=== PATIENT | male | born 1995 | race Hispanic/Latino ===

== ENCOUNTER 2019-05-19 02:36 | Emergency (ER) | payer SELFPAY ==
--- NOTE | 2019-05-19 03:14 | XRay Report ---
CHEST 2 VIEWS INDICATION / CLINICAL INFORMATION: CP. COMPARISON: None available. FINDINGS: SUPPORT DEVICES: None. HEART / MEDIASTINUM: No significant abnormality. LUNGS / PLEURA: No significant pulmonary or pleural abnormality. No pneumothorax. ADDITIONAL FINDINGS: No significant additional findings. IMPRESSION: 1. No acute findings. Signer Name: Chencho Arreola MD Signed: 05/19/2019 3:10 AM Workstation Name: [id number]
--- NOTE | 2019-05-19 03:36 | Emergency Department Report ---
ED General Adult HPI - General Chief complaint: Chest Pain Stated complaint: ANXIETY Time Seen by Provider: 05/19/19 03:20 Source: patient, EMS Mode of arrival: Ambulatory Limitations: No Limitations - History of Present Illness Initial comments: Patient is a 23-year-old white male with a history of anxiety and panic attacks who presents to the ED with complaint of acute onset persistent shortness of breath and cough as well as chest pain which started 2 hours ago, and her chest since resolved. Patient states that he started coughing and panic on the chest also started being tight. Patient denies dizziness, fever, chills, diaphoresis, sore throat, abdominal pain, nausea, vomiting, headache and change in vision. Patient states that he does not have any medicine for anxiety or panic attack at home. MD Complaint: Chest pain, anxiety and panic attack -: Sudden, hour(s) (2) Location: chest Radiation: non-radiation Severity scale (0 -10): 0 Quality: dull Consistency: now resolved Improves with: none Worsens with: none Associated Symptoms: denies other symptoms, chest pain, cough, shortness of breath. denies: confusion, diaphoresis, fever/chills, headaches, loss of appetite, malaise, nausea/vomiting, seizure, weakness Treatments Prior to Arrival: none - Related Data Previous Rx's Medication Instructions Recorded Last Taken Type hydrOXYzine PAMOATE [Vistaril] 25 mg PO Q6HR PRN #30 capsule 05/19/19 Unknown Rx Allergies Allergy/AdvReac Type Severity Reaction Status Date / Time Penicillins Allergy Rash Verified 05/19/19 02:41 ED Review of Systems ROS: Stated complaint: ANXIETY Other details as noted in HPI Constitutional: denies: chills, fever Eyes: denies: eye pain, eye discharge, vision change ENT: denies: ear pain, throat pain Respiratory: shortness of breath. denies: cough, wheezing Cardiovascular: chest pain. denies: palpitations Endocrine: no symptoms reported Gastrointestinal: denies: abdominal pain, nausea, diarrhea Genitourinary: denies: urgency, dysuria Musculoskeletal: denies: back pain, joint swelling, arthralgia Skin: denies: rash, lesions Neurological: denies: headache, weakness, paresthesias Psychiatric: anxiety. denies: depression Hematological/Lymphatic: denies: easy bleeding, easy bruising ED Past Medical Hx - Past Medical History Previous Medical History?: No Hx Psychiatric Treatment: Yes (Anxiety and panic attacks) - Surgical History Past Surgical History?: No - Social History Smoking Status: Never Smoker Substance Use Type: None - Medications Home Medications: Home Medications Medication Instructions Recorded Confirmed Last Taken Type hydrOXYzine PAMOATE [Vistaril] 25 mg PO Q6HR PRN #30 capsule 05/19/19 Unknown Rx ED Physical Exam - General Limitations: No Limitations General appearance: alert, in no apparent distress - Head Head exam: Present: atraumatic, normocephalic, normal inspection - Eye Eye exam: Present: normal appearance, PERRL, EOMI Pupils: Present: normal accommodation - ENT ENT exam: Present: normal exam, normal orophraynx, mucous membranes moist, TM's normal bilaterally, normal external ear exam - Neck Neck exam: Present: normal inspection, full ROM. Absent: tenderness, meningismus, lymphadenopathy, thyromegaly - Respiratory Respiratory exam: Present: normal lung sounds bilaterally. Absent: respiratory distress, wheezes, chest wall tenderness, accessory muscle use, decreased breath sounds, prolonged expiratory - Cardiovascular Cardiovascular Exam: Present: regular rate, normal rhythm, normal heart sounds. Absent: systolic murmur, diastolic murmur, rubs, gallop - GI/Abdominal GI/Abdominal exam: Present: soft, normal bowel sounds. Absent: tenderness, guarding, rebound, hyperactive bowel sounds, hypoactive bowel sounds, mass, bruit, pulsatile mass - Rectal Rectal exam: Present: deferred - Extremities Exam Extremities exam: Present: normal inspection, full ROM, normal capillary refill - Back Exam Back exam: Present: normal inspection, full ROM. Absent: CVA tenderness (L), muscle spasm, paraspinal tenderness, vertebral tenderness - Neurological Exam Neurological exam: Present: alert, oriented X3, CN II-XII intact, normal gait, reflexes normal - Psychiatric Psychiatric exam: Present: normal affect, normal mood, anxious - Skin Skin exam: Present: warm, dry, intact, normal color. Absent: rash ED Course - Reevaluation(s) Reevaluation #1: 05/19/19 03:40 This is a 23-year-old male with a history of chronic panic attacks and anxiety who presented to the ED with chest tightness and pain, and which has since resolved on arrival in the ED. Patient does not take any medications for anxiety or panic attacks. Patient is alert and oriented 3 and is not in distress with normal vital signs. The EKG shows a sinus bradycardia with a ventricular rate of 57 bpm, and no ST or T-wave abnormalities or pathological Q waves. Chest x-ray shows no acute cardiopulmonary abnormalities. Patient's symptoms are characteristic of panic attacks and anxiety based on history and physical exam findings. Patient does not have any cardiac risk factors for acute coronary syndrome. Patient was discharged home on Vistaril and advised to follow-up with his primary care physician in 2-3 days for reevaluation or return to the ED immediately if symptoms get worse. ED Medical Decision Making - EKG Data Rate: bradycardia - EKG Data 05/19/19 03:45 Sinus bradycardia - Radiology Data Radiology results: report reviewed, image reviewed Chest x-ray: No acute cardiopulmonary abnormalities - Medical Decision Making This is a 23-year-old male with a history of chronic panic attacks and anxiety who presented to the ED with chest tightness and pain, and which has since resolved on arrival in the ED. Patient does not take any medications for anxiety or panic attacks. Patient is alert and oriented 3 and is not in distress with normal vital signs. The EKG shows a sinus bradycardia with a ventricular rate of 57 bpm, and no ST or T-wave abnormalities or pathological Q waves. Chest x-ray shows no acute cardiopulmonary abnormalities. Patient's symptoms are characteristic of panic attacks and anxiety based on history and physical exam findings. Patient does not have any cardiac risk factors for acute coronary syndrome. Patient was discharged home on Vistaril and advised to follow-up with his primary care physician in 2-3 days for reevaluation or return to the ED immediately if symptoms get worse. - Differential Diagnosis Panic attack; anxiety, costochondritis, chest wall pain, muscle strain Critical care attestation.: If time is entered above; I have spent that time in minutes in the direct care of this critically ill patient, excluding procedure time. ED Disposition Clinical Impression: Anxiety as acute reaction to exceptional stress Chest pain Qualifiers: Chest pain type: unspecified Qualified Code(s): R07.9 - Chest pain, unspecified Disposition: DC-01 TO HOME OR SELFCARE Is pt being admited?: No Does the pt Need Aspirin: No Condition: Stable Instructions: Chest Pain (ED), Anxiety (ED) Additional Instructions: TAKE MEDICATIONS NEEDED FOR ANXIETY, AND FOLLOW UP WITH YOUR PRIMARY CARE PHYSICIAN ADVISED Prescriptions: hydrOXYzine PAMOATE [Vistaril] 25 mg PO Q6HR PRN #30 capsule PRN Reason: Anxiety Referrals: [facility] [Outside] - 3-5 Days Time of Disposition: 03:33 Print Language: THAI
[2019-05-19 03:43] VITALS: BP 94/55
== END 2019-05-19 03:42 | disposition home or self-care (01) ==
LOC: ED 02:36
DX: F41.0 Panic disorder [episodic paroxysmal anxiety] (principal); Z79.899 Other long term (current) drug therapy; Z88.0 Allergy status to penicillin
CPT/HCPCS: 71046; 93005; 93010